=== PATIENT | female | born 1965 | race Caucasian/White ===

== ENCOUNTER 2019-04-26 06:58 | Day surgery (SDC) | payer MEDICARE, MEDICAID, SELFPAY ==
[2019-04-25 13:18] VITALS: BMI 43.7
--- NOTE | 2019-04-26 07:19 | ANES.PREANE2 ---
Pre-Anesthetic Assessment Pre-Anesthetic Assessment: Height/Weight: Height 1.57 m Weight 108.409 kg Preop Diagnosis: polyps Proposed Procedure: Operation Date: 04/26/19 08:30 Proposed Procedures p Colonoscopy(Not Applicable) - Karlos Sanchez MD Familial anesthetic complications: None Was Beta Kobe taken within 24 hours: N/A Last intake: 1130 pm last night, took gabapentin, flexeril, esomeprazole this morning Social: Social History: Tobacco and No alcohol Packs per day: 1 ppd Exam: Pre-Anes Outpt Exam: alert, oriented x 3, clear to auscultation bilaterally and regular rate & rhythm Airway: Cervical ROM: WNL (cervical fusion - somewhat limited extension (mostly due to pain)) MP: 2 Dentition: False Pulmonary: Pulmonary: COPD (3 L NC continuous (91-92%)) CV/HEM: CV/HEM: None reported : : None reported Hepatic: Hepatic: None reported GI: Comments: excess acid in stomach so she takes esomeprazole - no active symptoms righ tnow Metabolic: Metabolic: DM and Morbid obesity Musc/skel: Musc/skel: Lower Back Pain Comments: cervical spine fused Neuropsych: Neuropsych: None reported Anesthetic Plan: ASA status: 3 Anesthesia: MAC Other: Will have patient on POM mask Risk of > 500 ml blood loss (7ml/kg in children): No PFSH Anesthesia PFSH: Social History Smoking and tobacco status: current every day smoker Alcohol intake: never Household members: spouse Marital status: Current occupational status: disabled History of recent travel: No Data Anesthesia Cardiac Studies: No Data to Display
[2019-04-26 07:43] VITALS: BP 127/95; PULSE 55; RESP 20; TEMP 36.4; O2SAT 96
[2019-04-26] MEDS: sodium chloride 0.9% 1,000 ML 30 ML (07:58)
[2019-04-26 08:03] LABS: Glucose Point of Care 124 mg/dL (70-110)
[2019-04-26 09:52] VITALS: BP 97/61; PULSE 93; RESP 16; TEMP 36.8; O2SAT 92
--- NOTE | 2019-04-26 09:57 | ANE.PACU2 ---
 Inpatient post-anesthesia follow up: Airway intact: Yes Vital signs: Temperature 98.3 F Pulse Rate 93 Respiratory Rate 16 Blood Pressure 97/61 Pulse Oximetry 92 Oxygen Delivery Me thod Nasal Cannula Oxygen Flow Rate 3 Fraction of Inspir ed Oxygen Hydration adequate: Yes Nausea and vomiting: No Pain level: 1 Mental status: Baseline
[2019-04-26 10:09] VITALS: BP 101/80; PULSE 95; RESP 18; O2SAT 94
--- NOTE | 2019-05-02 08:00 | W.PM.OPSUD ---
Surgery/Procedure H&P Update DATE OF PROCEDURE: 04/26/2019 DATE H&P PERFORMED: 03/29/19 H&P UPDATE INFORMATION: I have reviewed H&P completed within last 30 days, I have examined patient prior to procedure and No changes to prior documentation PREOP DIAGNOSIS: Colon polyps PLANNED PROCEDURE: Operation Date: 04/26/19 08:30 Proposed Procedures p Colonoscopy(Not Applicable) - Karlos Sanchez MD
== END 2019-04-26 10:34 | disposition home or self-care (01) ==
PROVIDERS: Family Provider Registered Nurse; PCP Registered Nurse; Visit Provider Surgery
PROC: 0DJD8ZZ Inspection of Lower Intestinal Tract, Via Natural or Artificial Opening Endoscopic (ICD-10-PCS; CPT 45378; principal; 2019-04-26 08:30)
DX: Z12.11 Encounter for screening for malignant neoplasm of colon (principal); D12.5 Benign neoplasm of sigmoid colon; K64.8 Other hemorrhoids; Z86.010 Personal history of colon polyps; J44.9 Chronic obstructive pulmonary disease, unspecified; F32.9 Major depressive disorder, single episode, unspecified; E11.40 Type 2 diabetes mellitus with diabetic neuropathy, unspecified; Z83.3 Family history of diabetes mellitus; Z82.49 Family history of ischemic heart disease and other diseases of the circulatory system; F17.210 Nicotine dependence, cigarettes, uncomplicated; Z99.81 Dependence on supplemental oxygen; E11.9 Type 2 diabetes mellitus without complications; E66.01 Morbid (severe) obesity due to excess calories; Z68.41 Body mass index [BMI] 40.0-44.9, adult
CPT/HCPCS: 12345; 36416; 45380; 82962; 88305; J2704; J7030

== ENCOUNTER → 2019-05-03 10:58 | Outpatient (BNVA) | payer MEDICARE, MEDICAID, SELFPAY | PROVIDERS: Family Provider Registered Nurse; PCP Registered Nurse; Visit Provider Nurse Practitioner | DX: M54.9 Dorsalgia, unspecified (principal); M54.2 Cervicalgia; G62.9 Polyneuropathy, unspecified; F17.210 Nicotine dependence, cigarettes, uncomplicated; Z79.891 Long term (current) use of opiate analgesic | CPT/HCPCS: 99214 ==

== ENCOUNTER → 2019-08-23 15:55 | Outpatient (BNVA) | payer MEDICARE, MEDICAID, SELFPAY | PROVIDERS: Family Provider Registered Nurse; PCP Registered Nurse; Visit Provider Registered Nurse | DX: E11.9 Type 2 diabetes mellitus without complications (principal) | CPT/HCPCS: 83036 ==

== ENCOUNTER → 2019-08-30 14:07 | Outpatient (BNVA) | payer MEDICARE, MEDICAID, SELFPAY | PROVIDERS: Family Provider Registered Nurse; PCP Registered Nurse; Visit Provider Anesthesiology | DX: G89.29 Other chronic pain (principal); M54.41 Lumbago with sciatica, right side; M54.42 Lumbago with sciatica, left side; M54.2 Cervicalgia; G62.9 Polyneuropathy, unspecified; F17.210 Nicotine dependence, cigarettes, uncomplicated; Z79.891 Long term (current) use of opiate analgesic; Z71.6 Tobacco abuse counseling | CPT/HCPCS: 99214 ==

== ENCOUNTER 2019-09-23 06:50 | Outpatient (CLI) | payer MEDICARE, MEDICAID, SELFPAY ==
[2019-09-23 07:13] VITALS: BMI 43.1
--- NOTE | 2019-09-23 07:27 | ECG_ITS ---
[facility] Test Date: 2019-09-23 Pat Name: Philomena Rodriguez Department: Room: Gender: Female [employer]: : 1965 Requested By: Elena Daniel Order Number: [id number] Trung MD: Elena Daniel M.D. Interpretive Statements NAME OF STUDY: LEXISCAN SESTAMIBI STRESS TEST INDICATION: Chest Pain PROCEDURE: At the baseline, the blood pressure was 102/86 mmHg, oxygen saturation 93% with a heart rate of 100 bpm. The electrocardiogram showed normal sinus rhythm, right axis deviation and right bundle branch block. Nonspecific T wave inversion in lead III, V4 to V6. The Lexiscan was infused over a period of 20 seconds. A total of 0.4 milligrams of Lexiscan was infused. The stress phase was continued for a total of 5 minutes. Heart rate at the end of the stress phase was 118 bpm, oxygen saturation 94% with a blood pressure 104/65 mmHg. The EKG at the peak infusion revealed sinus tachycardia with no significant ST-T wave changes from baseline. Study was terminated due to completion of protocol. Sestamibi was injected 20 seconds after the Lexiscan infusion. Blood pressure at the end of the recovery phase was 90/60 mmHg, oxygen saturation 91% with a heart rate of 110 beats per minute. CONCLUSION: 1. Nondiagnostic EKG with Lexiscan infusion given baseline EKG changes. 2. No LexiScan induced chest pain or cardiac arrhythmia. 3. Normal blood pressure and heart rate response. 4. Sestamibi/sestamibi perfusion scan pending; see separate report. Electronically Signed On 09-23-2019 12:53:39 CDT by Elena Daniel M.D. [email or web address] [id number]
--- NOTE | 2019-09-23 07:27 | NMCV_ITS ---
NM tamara perf SPECT r/s* [id number] Philomena Rodriguez Age: 54 Gender: F : 1965 Exam Date: 09/23/2019 08:16 Ordering Phys: Elena Daniel MD ([email or web address]) Technologist: EFREN Patino Exam Location: [facility] Indications: CHEST PAIN STRESS TEST Please [facility] for [facility] IMAGE PROTOCOL Rest/Stress 1 Lexiscan Day Radiopharmaceutical Dose (mCi) Administration Site Administered by Rest: Tc-99m 10.9 IV EFREN Painting Sestamibi Stress:Tc-99m 32.9 IV EFREN Painting Sestamibi Rest: 23-Sep-2019 60 Discovery 630 Stress: 23-Sep-2019 30 Discovery 630 0.4mg Lexiscan. Supine position only as patient was unable to lay prone. SPECT RESULTS Technical Quality: Excellent Raw Data Analysis: Normal, Breast attenuation Image Corrections: No attenuation or motion correction applied Summed Stress Score: 0 Summed Rest Score: 0 Summed Difference Score: 0 PERFUSION FINDINGS Small size perfusion abnormality of mild severity of anterior wall on rest images with improved tracer uptake on stress images. This is suggestive of breast attenuation artifact. FUNCTIONAL RESULTS (calculated via Gated SPECT) Stress Image LV EF (%): 82 Stress EDV (mL):72 TID: 0.95 Stress ESV (mL):13 FUNCTIONAL FINDINGS: The left ventricle is normal in size. Transient Ischemia Dilatation of 0.95. There is hyperdynamic left ventricular systolic function. The left ventricular ejection fraction is hyperdynamic with a value of 82%. This is likely overestimated because of small left ventricular cavity size. There is hyperdynamic left ventricular wall thickening. Normal end diastolic and end systolic volumes. IMPRESSIONS 1. Myocardial perfusion imaging is normal. Breast attenuation artifact noted in anterior wall. 2. Overall left ventricular systolic function is hyperdynamic without regional wall motion abnormalities. 3. The left ventricular ejection fraction is hyperdynamic with a value of 82%. 4. No coronary ischemia based on this study. Elena Daniel MD (Electronically Signed) Final Date: 23 September 2019 13:10 S
--- NOTE | 2019-09-23 09:00 | SUR.PREOP ---
Patient reports no pain or discomfort prior to the start of the procedure.
[2019-09-23] MEDS: regadenoson 0.4 Mg/5 ml Syringe IVP (09:03)
[2019-09-23 09:26] VITALS: BP 90/61; PULSE 107
== END 2019-09-23 06:51 | disposition home or self-care (01) ==
LOC: RAD 06:50 → CDL 06:52
PROVIDERS: PCP Registered Nurse; Visit Provider Internal Medicine Cardiovascular Disease
DX: R07.9 Chest pain, unspecified (principal)
CPT/HCPCS: 78452; 93017; A9500; J2785

== ENCOUNTER 2019-10-05 05:47 | Day surgery (SDC) | payer MEDICARE, MEDICAID, SELFPAY ==
[2019-10-04 12:16] VITALS: BMI 43.7
[2019-10-05] VITALS (8 sets, daily range): BP systolic 90–131; BP diastolic 56–77; PULSE 63–96; RESP 18–22; TEMP 35.8–36.6; O2SAT 90–97
[2019-10-05 06:27] LABS: Glucose Point of Care 108 mg/dL (70-110)
--- NOTE | 2019-10-05 06:36 | ANES.PREANE2 ---
Pre-Anesthetic Assessment Pre-Anesthetic Assessment: Height/Weight: Height 1.57 m Weight 108.409 kg Temp Pulse Resp BP Pulse Ox 97.9 F 96 20 H 131/72 95 10/05/19 06:02 10/05/19 06:02 10/05/19 06:02 10/05/19 06:02 10/05/19 06:02 Preop Diagnosis: Colon polyps Proposed Procedure: Operation Date: 10/05/19 07:00 Proposed Procedures p Ebus(Not Applicable) - Biplab MD Tashi Familial anesthetic complications: None Was Beta Kobe taken within 24 hours: N/A Last intake: Intake Last Liquid Date 10/04/19 Last Liquid Time 23:20 Last Solid Date 10/04/19 Last Solid Time 21:30 Social: Social History: Tobacco and No alcohol Exam: Pre-Anes Outpt Exam: alert, oriented x 3, clear to auscultation bilaterally and regular rate & rhythm Airway: Cervical ROM: WNL (Fusion, ok motion while asleep, mostly stiff) MP: 1 Dentition: False Pulmonary: Pulmonary: COPD (3 L NC 24/7, sometimes increasing to 4 L/min during periods of exertion) and Sleep apnea (cpap) CV/HEM: CV/HEM: Angina (Stable) and Palp Comments: RBBB GI: GI: GERD and PUD Metabolic: Metabolic: DM, Morbid obesity and Thyroid Musc/skel: Musc/skel: Lower Back Pain Neuropsych: Neuropsych: None reported Anesthetic Plan: ASA status: 3 Anesthesia: General Risk of > 500 ml blood loss (7ml/kg in children): No PFSH Anesthesia PFSH: Medical History Chronic neck pain COPD (chronic obstructive pulmonary disease) DDD (degenerative disc disease) Depression Diabetes Encounter for long-term opiate analgesic use GERD (gastroesophageal reflux disease) History of colon polyps Low back pain of over 3 months duration Neuropathy Opioid contract exists Smoker Surgical History H/O colonoscopy 04/26/2019: Sigmoid colon polyp H/O esophagogastroduodenoscopy yrs dash History of section History of cholecystectomy (2010) History of fusion of cervical spine (11/15/12) C5-C6 ACDFF [address] Boykin S/P hemilaminotomy (06/15/14) Right L2-L3 hemilaminotomy/foraminotomy/discectomy Dr. Boykin Family History Mother Cancer Cervical Other Hypertension Denies family history of Anesthesia complication Bleeding disorder Social History Smoking and tobacco status: current every day smoker cigarettes Packs smoked per day: 1 Years cigarettes smoked: 30 Quit status (tobacco): considering quitting Alcohol intake: never Lives independently: Yes Household members: spouse Marital status: Current occupational status: disabled History of recent travel: No Current gender identity: Female Data Anesthesia Other Labs: Laboratory Results - last 48 hr 10/05/19 06:23 POC Glucose 108 Cardiac Studies: No Data to Display
[2019-10-05] MEDS: sodium chloride 0.9% 1,000 ML 30 ML IV (06:49)
--- NOTE | 2019-10-05 06:49 | W.PM.OPSUD ---
Surgery/Procedure H&P Update DATE OF PROCEDURE: October 05, 2019 DATE H&P PERFORMED: 09/13/19 H&P UPDATE INFORMATION: I have reviewed H&P completed within last 30 days, I have examined patient prior to procedure and No changes to prior documentation PREOP DIAGNOSIS: Colon polyps PRIMARY INDICATION FOR PROCEDURE: Right hilar lymphadenopathy PLANNED PROCEDURE: Bronchoscopy inspection of the airway, endobronchial sound guided transbronchial needle aspiration of lymph nodes Operation Date: 10/05/19 07:00 Proposed Procedures p Ebus(Not Applicable) - Biplab MD Tashi
[2019-10-05] MEDS: lidocaine 1% INJ 20 mL SUBCUT (07:13)
--- NOTE | 2019-10-05 07:52 | PM.OP ---
Operative Report Date of procedure: October 05, 2019 Pre-op Diagnosis: Mediastinal lymphadenopathy Post-op diagnosis: same Brief History: This is a 54-year-old lady with PET positive medicine lymphadenopathy coming in for bronchoscopic evaluation for malignancy Procedure: Name of the procedure: Bronchoscopy with inspection of the airway, bronchoalveolar lavage, endobronchial ultrasound-guided transbronchial needle aspiration of lymph nodes and control of bleeding. Indication: Mediastinal hilar lymphadenopathy Anesthesia: General anesthesia. Local anesthesia: The tammi in the right and left mainstem bronchi were anesthetized with 1% lidocaine, 3 mL. Description of the procedure: The procedure was explained to the patient and the consent was obtained. The patient was brought to the OR. The patient underwent endotracheal intubation for general anesthesia. Following induction of general anesthesia, the bronchoscope was advanced through the ET tube. The lower trachea appeared to be mildly erythematous, no endotracheal lesion was seen. The tammi was sharp. The tammi, the right and left mainstem bronchi are anesthetized with 1% lidocaine. In a systematic manner bilateral bronchial tree was then examined. The bronchoscope was advanced into the left mainstem bronchus. The left upper lobe, lingula and left lower lobe bronchi were examined up to the third subsegmental level and no abnormalities were identified. There is no endobronchial lesion, active bleeding or mucous plug. The bronchoscope was then introduced into the right mainstem bronchus. The right upper lobe, right middle lobe and right lower lobe bronchi were examined up to the third subsegmental level and no abnormalities were identified. There was airway inflammation and mucus throughout the airways. Bronchoalveolar lavage was performed from the lateral segment of the right middle lobe. 60 mL of saline was instilled, fluid return was 20 mL. The fluid was cloudy. The endobronchial ultrasound was introduced through the ET tube. Mediastinal and hilar lymphadenopathy was identified with the ultrasound. The lymph nodes showed no distinct cortex and Medela. Transbronchial needle aspiration was performed from 4R, 7, 10 R lymph nodes. Samples: 1. Bronchoalveolar lavage specimen was sent for Gram stain and culture, fungal stain and culture, AFB stain and culture. 2. The transbronchial needle aspiration of the aforementioned lymph node groups were sent for cytology. Complications: There was no immediate complications. The patient was extubated and brought to the PACU in stable condition.
== END 2019-10-05 09:22 | disposition home or self-care (01) ==
PROVIDERS: PCP Registered Nurse; Visit Provider Internal Medicine Critical Care Medicine
PROC: BB4BZZZ Ultrasonography of Pleura (ICD-10-PCS; CPT 31624; principal; 2019-10-05 07:00)
DX: R59.0 Localized enlarged lymph nodes (principal); J44.9 Chronic obstructive pulmonary disease, unspecified; Z99.89 Dependence on other enabling machines and devices; E66.01 Morbid (severe) obesity due to excess calories; E11.40 Type 2 diabetes mellitus with diabetic neuropathy, unspecified; F17.210 Nicotine dependence, cigarettes, uncomplicated; Z99.81 Dependence on supplemental oxygen; G47.33 Obstructive sleep apnea (adult) (pediatric); Z79.84 Long term (current) use of oral hypoglycemic drugs; Z68.41 Body mass index [BMI] 40.0-44.9, adult
CPT/HCPCS: 31624; 31652; 12345; 31625; 31627; 36416; 82962; 87070; 87102; 87107; 87205; 87206; 88112; 88173; 88305; J0330; J2250; J2370; J2704; J2710; J3010; J3490; J7030

== ENCOUNTER → 2019-10-21 11:40 | Outpatient (BNVA) | payer MEDICARE, MEDICAID, SELFPAY | PROVIDERS: PCP Registered Nurse; Visit Provider Internal Medicine | DX: Z01.812 Encounter for preprocedural laboratory examination (principal) | CPT/HCPCS: 87635 ==

== ENCOUNTER 2019-10-24 09:22 | Outpatient (CLI) | payer MEDICARE, MEDICAID, SELFPAY ==
--- NOTE | 2019-10-24 10:01 | USCV_ITS ---
Philomena Rodriguez Age: 54 Gender: F : 1965 Exam Date: 10/24/2019 10:14 Ordering Phys: Lien Akins MD Technologist: Dagoberto Hong Exam Location: [facility] [place] Indication: IRREG HEART BEAT BP: 124 / 75 HR: 85 Rhythm: Sinus Technical Quality: Poor MEASUREMENTS (Male / Female) Normal Values 2D ECHO LV Diastolic Diameter PLAX 3.0 cm 4.2 - 5.9 / 3.9 - 5.3 cm LV Systolic Diameter PLAX 2.3 cm IVS Diastolic Thickness 1.1 cm 0.6 - 1.0 / 0.6 - 0.9 cm IVS Systolic Thickness 1.2 cm LVPW Diastolic Thickness 0.9 cm 0.6 - 1.0 / 0.6 - 0.9 cm LVPW Systolic Thickness 1.4 cm LVOT Diameter 2.3 cm LV Ejection Fraction 2D Teich 48.4 % LV Ejection Fraction MOD 2C 76.6 % LV Ejection Fraction 2C AL 77.3 % LA Diameter 4.4 cm LA Width 2.3 cm LA Height 4.2 cm RA Width 2.9 cm RA Height 4.1 cm Aorta at Sinotubular Diameter 0.9 cm M-MODE LV Diastolic Diameter MM 5.1 cm 4.2 - 5.9 / 3.9 - 5.3 cm LV Systolic Diameter MM 3.5 cm LV Ejection Fraction MM Teich 59.1 % IVS Diastolic Thickness MM 1.0 cm 0.6 - 1.0 / 0.6 - 0.9 cm IVS Systolic Thickness MM 1.6 cm LVPW Diastolic Thickness MM 1.1 cm 0.6 - 1.0 / 0.6 - 0.9 cm LVPW Systolic Thickness MM 1.8 cm RV Diastolic Diameter MM 1.5 cm Aortic Annulus Diameter 3.8 cm LA Ao Ratio MM 1.2 MV E Point Septal Separation 0.8 cm DOPPLER AV Peak Velocity 124.0 cm/s LVOT Peak Velocity 93.0 cm/s AV Area Cont Eq vti 3.6 cm squared AV Area Cont Eq pk 3.2 cm squared MV Area PHT 5.0 cm squared Mitral E to A Ratio 1.1 MV E' Velocity 9.0 cm/s Mitral E to MV E' Ratio 10.9 Mitral E to LV E' Lateral Ratio 10.9 Mitral E to LV E' Septal Ratio 10.9 TR Peak Velocity 94.0 cm/s TR Peak Gradient 3.5 mmHg PV Peak Velocity 74.0 cm/s FINDINGS Left Ventricle Normal left ventricular cavity size. Normal left ventricular systolic function. No regional wall motion abnormalities. Left ventricular ejection fraction is estimated at 60 %. Grade I/IV diastolic dysfunction (abnormal relaxation filling pattern), normal to mildly elevated filling pressures. Right Ventricle The right ventricle is normal in size and function. Right Atrium The right atrium is normal in size. Left Atrium The left atrium is normal in size. Mitral Valve Structurally normal mitral valve without significant stenosis or prolapse. There is no mitral regurgitation. Aortic Valve Aortic valve not well visualized. Probably normal Tricuspid Valve Structurally normal tricuspid valve without significant stenosis or regurgitation. Pulmonary artery systolic pressure is normal. Pulmonic Valve Structurally normal pulmonic valve without significant stenosis. There is no pulmonic regurgitation. Pericardium Normal pericardium without effusion. Aorta Normal ascending aorta dimension. CONCLUSIONS 1-Normal left ventricular cavity size. Normal left ventricular systolic function. No regional wall motion abnormalities. Left ventricular ejection fraction is estimated at 60 %. Grade I/IV diastolic dysfunction (abnormal relaxation filling pattern), normal to mildly elevated filling pressures. 2-Aortic valve not well visualized. Probably normal. 3-There is no pericardial effusion. 4-No significant valve abnormalities. 5-Right atrial pressure is around 5 mm of mercury. 6-There are no prior echocardiogram studies to compare. Leroy Moyer MD (Electronically Signed) Final Date: 24 October 2019 20:18 S
[2019-10-24 10:13] VITALS: O2SAT 92
--- NOTE | 2019-10-24 10:21 | PFTS_ITS ---
Date of Study:10/24/19 Date of Dictation: MECHANICS: Forced vital capacity (FVC) is reduced. Forced expiratory volume in one second (FEV1) is reduced. FEV1/FVC is normal. FLOW VOLUME LOOP: Narrowed with mild scooping at lower lung volumes. LUNG VOLUMES: Total lung capacity (TLC) is increased. Residual volume (RV) is increased. DIFFUSING CAPACITY FOR CARBON MONOXIDE: Moderately reduced. INTERPRETATION: The pulmonary function tests are consistent with combined obstruction restriction. Spirometry is consistent with mild restriction however there is increased total lung capacity and residual volume likely secondary to small airways disease. Lung volumes are consistent with air trapping and hyperinflation. Gas exchange (DLCO) is moderately reduced. MTDD
== END 2019-10-24 09:23 | disposition home or self-care (01) ==
LOC: RT 09:24
PROVIDERS: PCP Registered Nurse; Visit Provider Internal Medicine Critical Care Medicine
DX: J96.11 Chronic respiratory failure with hypoxia (principal); I49.8 Other specified cardiac arrhythmias
CPT/HCPCS: 93306; 94010; 94726; 94729; 94762

== ENCOUNTER 2019-10-24 11:00 | Outpatient (CLI) | payer MEDICARE, MEDICAID, SELFPAY | END 2019-10-24 11:01 | disposition home or self-care (01) | LOC: SLEEP 10-25 13:56 | PROVIDERS: PCP Registered Nurse; Visit Provider Internal Medicine Critical Care Medicine | DX: J96.11 Chronic respiratory failure with hypoxia (principal) | CPT/HCPCS: 94762 ==

== ENCOUNTER → 2019-10-27 10:02 | Outpatient (BNVA) | payer MEDICARE, MEDICAID, SELFPAY | PROVIDERS: Family Provider Registered Nurse; PCP Registered Nurse; Visit Provider Anesthesiology | DX: G89.29 Other chronic pain (principal); M54.42 Lumbago with sciatica, left side; M54.41 Lumbago with sciatica, right side; M54.2 Cervicalgia; G62.9 Polyneuropathy, unspecified; F17.210 Nicotine dependence, cigarettes, uncomplicated; Z79.891 Long term (current) use of opiate analgesic; Z71.6 Tobacco abuse counseling | CPT/HCPCS: 99214 ==

== ENCOUNTER → 2019-12-28 12:59 | Outpatient (BNVA) | payer MEDICARE, MEDICAID, SELFPAY | PROVIDERS: Family Provider Registered Nurse; PCP Registered Nurse; Visit Provider Anesthesiology | DX: G89.29 Other chronic pain (principal); M54.5 Low back pain; M54.2 Cervicalgia; G62.9 Polyneuropathy, unspecified; F17.210 Nicotine dependence, cigarettes, uncomplicated; Z79.891 Long term (current) use of opiate analgesic | CPT/HCPCS: 99214 ==

== ENCOUNTER → 2020-02-14 13:58 | Outpatient (BNVA) | payer MEDICARE, MEDICAID, SELFPAY | PROVIDERS: Family Provider Registered Nurse; PCP Registered Nurse; Visit Provider Nurse Practitioner | DX: G89.29 Other chronic pain (principal); M54.5 Low back pain; M54.2 Cervicalgia; G62.9 Polyneuropathy, unspecified; F17.210 Nicotine dependence, cigarettes, uncomplicated; Z79.891 Long term (current) use of opiate analgesic | CPT/HCPCS: 99213 ==

== ENCOUNTER → 2020-03-14 15:19 | Outpatient (BNVA) | payer MEDICARE, MEDICAID, SELFPAY | PROVIDERS: Family Provider Registered Nurse; PCP Registered Nurse; Visit Provider Registered Nurse | DX: J44.1 Chronic obstructive pulmonary disease with (acute) exacerbation (principal); Z20.828 Contact with and (suspected) exposure to other viral communicable diseases | CPT/HCPCS: 87635 ==

== ENCOUNTER → 2020-04-10 11:37 | Outpatient (BNVA) | payer MEDICARE, MEDICAID, SELFPAY | PROVIDERS: Family Provider Registered Nurse; PCP Registered Nurse; Visit Provider Nurse Practitioner | DX: G89.29 Other chronic pain (principal); G62.9 Polyneuropathy, unspecified; M54.5 Low back pain; M54.2 Cervicalgia; F17.210 Nicotine dependence, cigarettes, uncomplicated; Z79.891 Long term (current) use of opiate analgesic | CPT/HCPCS: 99213; 99214 ==

== ENCOUNTER → 2020-04-27 09:29 | Outpatient (BNVA) | payer MEDICARE, MEDICAID, SELFPAY | PROVIDERS: Family Provider Registered Nurse; PCP Registered Nurse; Visit Provider Registered Nurse | DX: E11.9 Type 2 diabetes mellitus without complications (principal); F41.9 Anxiety disorder, unspecified; F32.9 Major depressive disorder, single episode, unspecified; J43.2 Centrilobular emphysema | CPT/HCPCS: 80053; 80061; 83036; 85025 ==

== ENCOUNTER → 2020-06-07 14:01 | Outpatient (BNVA) | payer MEDICARE, MEDICAID, SELFPAY | PROVIDERS: Family Provider Registered Nurse; PCP Registered Nurse; Visit Provider Nurse Practitioner | DX: G89.29 Other chronic pain (principal); M54.5 Low back pain; M54.2 Cervicalgia; G62.9 Polyneuropathy, unspecified; F17.210 Nicotine dependence, cigarettes, uncomplicated; Z79.891 Long term (current) use of opiate analgesic; Z71.6 Tobacco abuse counseling | CPT/HCPCS: 99213; 99214 ==

== ENCOUNTER → 2020-08-15 13:07 | Outpatient (BNVA) | payer MEDICARE, MEDICAID, SELFPAY | PROVIDERS: Family Provider Registered Nurse; PCP Registered Nurse; Visit Provider Anesthesiology | DX: G89.29 Other chronic pain (principal); M54.2 Cervicalgia; M54.9 Dorsalgia, unspecified; G62.9 Polyneuropathy, unspecified; F17.210 Nicotine dependence, cigarettes, uncomplicated; Z79.891 Long term (current) use of opiate analgesic | CPT/HCPCS: 99213 ==

== ENCOUNTER → 2020-10-12 13:36 | Outpatient (BNVA) | payer MEDICARE, MEDICAID, SELFPAY | PROVIDERS: Family Provider Registered Nurse; PCP Registered Nurse; Visit Provider Anesthesiology | DX: G89.29 Other chronic pain (principal); M54.42 Lumbago with sciatica, left side; M54.2 Cervicalgia; G62.9 Polyneuropathy, unspecified; Z79.891 Long term (current) use of opiate analgesic; Z87.891 Personal history of nicotine dependence | CPT/HCPCS: 99214 ==

== ENCOUNTER → 2020-11-28 10:54 | Outpatient (BNVA) | payer MEDICARE, MEDICAID, SELFPAY | PROVIDERS: Family Provider Registered Nurse; PCP Registered Nurse; Visit Provider Registered Nurse | DX: E11.9 Type 2 diabetes mellitus without complications (principal); I10 Essential (primary) hypertension; E53.8 Deficiency of other specified B group vitamins | CPT/HCPCS: 80053; 82607; 83036; 85025 ==

== ENCOUNTER → 2020-12-18 13:47 | Outpatient (BNVA) | payer MEDICARE, MEDICAID, SELFPAY | PROVIDERS: Family Provider Registered Nurse; PCP Registered Nurse; Visit Provider Anesthesiology | DX: G89.29 Other chronic pain (principal); M54.42 Lumbago with sciatica, left side; M54.2 Cervicalgia; G62.9 Polyneuropathy, unspecified; Z79.891 Long term (current) use of opiate analgesic; Z87.891 Personal history of nicotine dependence | CPT/HCPCS: 99214 ==

== ENCOUNTER 2020-12-24 13:37 | Outpatient (CLI) | payer MEDICARE, MEDICAID, SELFPAY ==
--- NOTE | 2020-12-24 13:30 | CT_ITS ---
WS: [id number] LDCT LUNG CANCER SCREENING HISTORY: History of Nicotine Dependence TECHNIQUE: Axial imaging performed from the apices to 1 cm below the costophrenic angles. Coronal and sagittal reformats are submitted with axial MIP series. All CT scans at [facility] use at least one of these dose optimization techniques: automated exposure control; mA and/or kV adjustment per patient size (includes targeted exams where dose is matched to clinical indication); or iterativ e reconstruction. DLP: 53.4 mGy.cm DIvol: 1.58 mGy COMPARISON: 08/21/2019 Diagnostic quality: Mildly suboptimal due to body habitus. Lung Nodules: No discrete pulmonary nodules. There is a very small, 5 mm soft tissue nodule projectin g into the proximal LEFT mainstem bronchus, image 98 of series 3 and 54 of series 603. This was not p resent on prior studies. Lungs: Hyperinflation with chronic emphysema. Linear atelectasis at the lingula. Heart: Normal size heart. No effusion. Other findings: Thoracic spondylitic changes. CT/CT lung screening 50092 IMPRESSION: LUNG-RADS: 4A-Probably Suspicious FOLLOW UP: 3 Month LDCT OTHER FINDINGS (S MODIFIER): None. Follow-up in 3 months to evaluate the very small endobronchial lesion in the pr oximal LEFT mainstem bronchus.
== END 2020-12-24 13:38 | disposition home or self-care (01) ==
LOC: RAD 13:40
PROVIDERS: PCP Registered Nurse; Visit Provider Internal Medicine Critical Care Medicine
DX: Z87.891 Personal history of nicotine dependence (principal); Z12.2 Encounter for screening for malignant neoplasm of respiratory organs
CPT/HCPCS: 71271

== ENCOUNTER → 2020-12-26 11:06 | Outpatient (BNVA) | payer MEDICARE, MEDICAID, SELFPAY | PROVIDERS: PCP Registered Nurse; Visit Provider Internal Medicine Critical Care Medicine | DX: R91.8 Other nonspecific abnormal finding of lung field (principal); Z20.822 Contact with and (suspected) exposure to COVID-19 | CPT/HCPCS: 87635 ==

== ENCOUNTER 2021-01-01 07:20 | Day surgery (SDC) | payer MEDICARE, MEDICAID, SELFPAY ==
[2020-12-31 10:10] VITALS: BMI 46.6
[2021-01-01 07:44] VITALS: BP 103/73; PULSE 98; RESP 20; TEMP 36.4; O2SAT 93
[2021-01-01] MEDS: sodium chloride 0.9% 1,000 ML 30 ML IV (07:48)
--- NOTE | 2021-01-01 08:00 | W.PM.OPSUD ---
Surgery/Procedure H&P Update DATE OF PROCEDURE: January 01, 2021 DATE H&P PERFORMED: 12/13/20 H&P UPDATE INFORMATION: I have reviewed H&P completed within last 30 days, I have examined patient prior to procedure and No changes to prior documentation PREOP DIAGNOSIS: Endobronchial lesion PLANNED PROCEDURE: Bronchoscopy, inspection of the airway endobronchial biopsies, bronchoalveolar lavage and control of bleeding Operation Date: 01/01/21 08:20 Proposed Procedures p Bronchoscopy 53485 R91.8 [id number](Not Applicable) - [facility] MD Tashi
[2021-01-01 08:06] LABS: Glucose Point of Care 118 mg/dL (70-110)
--- NOTE | 2021-01-01 08:08 | ANES.PREANE2 ---
Pre-Anesthetic Assessment Pre-Anesthetic Assessment: Height/Weight: Height 1.57 m Weight 115.666 kg Temp Pulse Resp BP Pulse Ox 97.5 F L 98 20 H 103/73 93 01/01/21 07:44 01/01/21 07:44 01/01/21 07:44 01/01/21 07:44 01/01/21 07:44 Preop Diagnosis: Endobronchial lesion Proposed Procedure: Operation Date: 01/01/21 08:20 Proposed Procedures p Bronchoscopy 00399 R91.8 [id number](Not Applicable) - Lien Akins MD Last intake: Intake Last Liquid Date 12/31/20 Last Liquid Time 23:00 Last Solid Date 12/31/20 Last Solid Time 23:00 Social: Social History: Tobacco Exam: Pre-Anes Outpt Exam: alert, oriented x 3, clear to auscultation bilaterally and regular rate & rhythm Airway: Submandibular: WNL Cervical ROM: WNL MP: 2 Dentition: Full History/ROS: No significant history except as noted and No significant complaints Pulmonary: Pulmonary: COPD, Cough, KENNEDY, Orthopnea, Sleep apnea and SOB Comments: 3LNC cont CV/HEM: CV/HEM: HTN : : None reported Hepatic: Hepatic: None reported GI: GI: None reported Metabolic: Metabolic: DM Musc/skel: Musc/skel: None reported Neuropsych: Neuropsych: Anxiety Anesthetic Plan: ASA status: 4 Anesthesia: Anesthesia Evaluation and MAC Risk of > 500 ml blood loss (7ml/kg in children): No Meds/Allergies Current Medications: Current Medications Generic Name Dose Route Start Last Admin Trade Name Freq PRN Reason Stop Dose Admin Sodium Chloride 1,000 mls @ 30 ml s/hr 01/01/21 07:30 01/01/21 07:48 Sodium Chloride 0.9% IV 01/02/21 07:29 30 mls/hr .Q24H MARIA GUADALUPE Administration PFSH Anesthesia PFSH: Medical History (Updated 12/18/20 @ 15:13 by Braulio Strauss MD) Chronic midline back pain Chronic neck pain DDD (degenerative disc disease) Depression Diabetes Encounter for long-term opiate analgesic use GERD (gastroesophageal reflux disease) History of colon polyps Low back pain of over 3 months duration Neuropathy Opioid contract exists Surgical History H/O colonoscopy 04/26/2019: Sigmoid colon polyp H/O esophagogastroduodenoscopy yrs [facility] History of section History of cholecystectomy (2010) History of fusion of cervical spine (11/15/12) C5-C6 [address] Boykin S/P hemilaminotomy (06/15/14) Right L2-L3 hemilaminotomy/foraminotomy/discectomy Dr. Boykin Family History Mother Cancer Cervical Other Hypertension Denies family history of Anesthesia complication Bleeding disorder Social History (Updated 12/18/20 @ 15:01 by Nora Santiago LPN) Quit status (tobacco): has quit using tobacco Year quit tobacco: 2020 Former quit date comment: Hx of 1 PPD x 40 Years Second hand smoke exposure: Yes Smoking risk assessment/counseling performed?: No Alcohol intake: never Counseling given: No Counseling given: No Lives independently: Yes Household members: spouse Marital status: Current occupational status: disabled History of recent travel: No Current gender identity: Female Data Anesthesia Other Labs: Laboratory Results - last 48 hr 01/01/21 08:03 POC Glucose 118 H Cardiac Studies: No Data to Display
[2021-01-01] MEDS: lidocaine 1% INJ 20 mL XX (08:33)
[2021-01-01 08:42] VITALS: BP 120/73; PULSE 102; RESP 20; TEMP 36.3; O2SAT 92
--- NOTE | 2021-01-01 08:46 | PM.OP ---
Operative Report Date of procedure: January 01, 2021 Pre-op Diagnosis: Endobronchial lesion Post-op diagnosis: same Post-op Diagnosis: Endobronchial accumulation of mucus Brief History: This is a 55-year-old lady who was found to have left mainstem bronchus endobronchial lesion on low-dose CT scan for lung cancer screening. She is coming in for bronchoscopic evaluation. Procedure: Name of the procedure: Bronchoscopy with inspection of the airway, possible endobronchial biopsy, bronchoalveolar lavage, airway clearance and control of bleeding. Indication: Endobronchial lesion in the left mainstem bronchus on CT scan of the chest. Medication: MAC Description of the procedure: Consent was obtained for the bronchoscopy procedure and the patient was brought to the OR. Monitored anesthesia care was initiated by the anesthesia team. The bronchoscope was introduced through the mouth and advanced till vocal cords were visualized. The vocal cords anesthetized with 1% lidocaine, 3 mL. The bronchoscope was then introduced through the vocal cords under direct visualization. The upper trachea appeared to be mildly right Erwin. There was mucus stuck to the wall of the upper trachea. The trachea, the tammi and the right and left mainstem bronchi are anesthetized with 1% lidocaine. A total of 5 mL of lidocaine was used. In a systematic manner bilateral airways were then examined. The bronchoscope was introduced into the right mainstem bronchus. The right upper lobe, middle lobe and lower lobe bronchi are examined up to the third subsegmental level. No endobronchial lesions were identified but there was mucus throughout the right side. The bronchoscope was then introduced into the left mainstem bronchus. Mucus was noted to be stuck on the wall of the left mainstem bronchus. The left mainstem bronchus was carefully examined. After the mucus was suctioned out, no endobronchial lesion was identified. The left upper lobe, lingula and lower lobe bronchi were examined up to the third subsegmental level without any abnormalities. The airways were cleaned up. Complications: No immediate complication was noted.
[2021-01-01 08:50] VITALS: BP 134/96; PULSE 97; RESP 20; O2SAT 93
== END 2021-01-01 09:09 | disposition home or self-care (01) ==
PROVIDERS: PCP Registered Nurse; Visit Provider Internal Medicine Critical Care Medicine
PROC: 0BJ08ZZ Inspection of Tracheobronchial Tree, Via Natural or Artificial Opening Endoscopic (ICD-10-PCS; CPT 31622; principal; 2021-01-01 08:10)
DX: R91.1 Solitary pulmonary nodule (principal); I10 Essential (primary) hypertension; K21.9 Gastro-esophageal reflux disease without esophagitis; Z86.010 Personal history of colon polyps; E11.40 Type 2 diabetes mellitus with diabetic neuropathy, unspecified; Z87.891 Personal history of nicotine dependence; G47.33 Obstructive sleep apnea (adult) (pediatric); Z79.84 Long term (current) use of oral hypoglycemic drugs; Z79.891 Long term (current) use of opiate analgesic; J43.2 Centrilobular emphysema; J96.11 Chronic respiratory failure with hypoxia; E66.01 Morbid (severe) obesity due to excess calories; Z68.42 Body mass index [BMI] 45.0-49.9, adult
CPT/HCPCS: 31622; 31645; 36416; 82962; 96360; J7030

== ENCOUNTER → 2021-02-19 13:22 | Outpatient (BNVA) | payer MEDICARE, MEDICAID, SELFPAY | PROVIDERS: PCP Registered Nurse; Visit Provider Anesthesiology | DX: G89.29 Other chronic pain (principal); M54.2 Cervicalgia; M54.50 Low back pain, unspecified; G62.9 Polyneuropathy, unspecified; Z87.891 Personal history of nicotine dependence; Z79.891 Long term (current) use of opiate analgesic | CPT/HCPCS: 99214 ==

== ENCOUNTER → 2021-03-21 14:53 | Outpatient (BNVA) | payer MEDICARE, MEDICAID, SELFPAY | PROVIDERS: PCP Registered Nurse; Visit Provider Family Medicine | DX: M54.50 Low back pain, unspecified (principal); G89.29 Other chronic pain; M54.2 Cervicalgia; Z79.891 Long term (current) use of opiate analgesic; E11.9 Type 2 diabetes mellitus without complications; J30.1 Allergic rhinitis due to pollen | CPT/HCPCS: 83036 ==

== ENCOUNTER → 2021-09-12 15:08 | Outpatient (BNVA) | payer MEDICARE, MEDICAID, SELFPAY | PROVIDERS: PCP Registered Nurse; Visit Provider Registered Nurse | DX: E11.9 Type 2 diabetes mellitus without complications (principal); M54.2 Cervicalgia; G89.29 Other chronic pain | CPT/HCPCS: 80053; 83036 ==

== ENCOUNTER 2022-02-27 14:36 | Outpatient (CLI) | payer MEDICARE, MEDICAID, SELFPAY ==
--- NOTE | 2022-02-27 | CT_ITS ---
WS: [id number] CT LUMBAR SPINE TECHNIQUE: Noncontrast CT of the lumbar spine with coronal and sagittal reformatted images. CLINICAL INFORMATION: LUMBAR PAIN COMPARISON: CT 2017 DLP: 1988.[address] scans at [facility] use at least one of these dose optimization techniques: automated e xposure control; mA and/or kV adjustment per patient size (includes targeted exams where dose is matc hed to clinical indication); or iterative reconstruction. FINDINGS: Mild lumbar curve. No acute compression. Disc space narrowing throughout the lumbar spine with vacuum disc phenomenon. Disc space narrowing worse at L2-L3, L3-L4, L4-L5, and L5-S1. Degenerative endplate -type changes at L2-L3 with endplate sclerosis. Hypertrophic changes anterior lumbar spine. Disc spac e narrowing with vacuum disc phenomenon has progressed since 2017 Lung bases are well aerated. LEFT adrenal gland is normal. RIGHT adrenal adenoma measuring 1.9 CM. No rmal GE junction. Splenic granulomas. A few prominent lymph nodes at the sukh hepatis partially visu alized nonspecific but likely reactive. L1-L2: Mild RIGHT and no significant LEFT foraminal narrowing. Mild facet arthropathy. L2-L3: Disc space narrowing with endplate sclerosis. Vacuum disc phenomenon. Prior RIGHT hemilaminect solomon. RIGHT foraminal protrusion impinges the exiting RIGHT L2 nerve root with moderate RIGHT foramina l narrowing. LEFT foramen is patent. L3-L4: Mild disc bulging with osteophytic ridging. Narrowing of the LEFT subarticular recess. Moderat e facet arthropathy. LEFT foraminal protrusion with moderate LEFT foraminal narrowing. RIGHT foramen is patent. Moderate facet arthropathy. Mild central canal stenosis. L4-L5: Prior RIGHT hemilaminectomy. Shallow central disc protrusion with slight effacement of ventral thecal sac. Moderate facet arthropathy. Moderate LEFT and mild RIGHT foraminal narrowing. L5-S1: Mild disc bulging with osteophytic ridging. Mild to moderate RIGHT and no significant LEFT for aminal narrowing. Moderate facet arthropathy. Visualized pelvic bony structures: Normal. Paravertebral soft tissues: Normal. CT/CT lumbar spine wo con* [id number] IMPRESSION: 1. RIGHT foraminal protrusion L2-L3 impinges the exiting RIGHT L2 nerve root w ith moderate RIGHT foraminal narrowing. 2. LEFT foraminal protrusion L3-L4 impinges the exiting LEFT L3 nerve root wit h moderate LEFT foraminal narrowing. 3. Moderate LEFT L4-L5 foraminal narrowing due to LEFT eccentric disc osteophy te complex. 4. Mild/moderate RIGHT L5-S1 foraminal narrowing. 5. Mild central canal stenosis L3-L4. 6. Evidence of prior hemilaminectomies RIGHT L2-L3, RIGHT L4-L5.
--- NOTE | 2022-02-27 | CT_ITS ---
WS: [id number] CT CERVICAL MYELOGRAM TECHNIQUE: CT of the cervical spine coronal and sagittal reformatted images post intrathecal administ ration of contrast. CLINICAL INFORMATION: CERVICAL FUSION SYNDROME COMPARISON: MRI 2014 DLP: 361.[address] scans at [facility] use at least one of these dose optimization techniques: automated e xposure control; mA and/or kV adjustment per patient size (includes targeted exams where dose is matc hed to clinical indication); or iterative reconstruction. FINDINGS: Normal cervical lordosis. Moderate spondylitic changes. Prior postoperative changes ACDF C5-C6 with i ncomplete interbody bony fusion at this level. No significant bony bridging beyond the confines of th e graft.. Mild subsidence. Anterior fixation screws appear intact. No evidence of screw loosening. Ce rvical alignment appears unchanged since 2013. C2-C3: No significant disc bulging. Spinal canal and foramen are patent. C3-C4: Mild disc osteophyte complex with endplate ridging. Small central protrusion. Mild central can al stenosis. Mild bilateral bony foraminal narrowing. Mild facet arthropathy. C4-C5: Disc osteophyte complex with endplate ridging. Mild central canal stenosis. Mild bilateral bon y foraminal narrowing. Mild facet arthropathy. C5-C6: Anterior cervical fusion. Mild central canal stenosis due to osteophytic ridging. Moderate james ateral bony foraminal narrowing. Mild facet arthropathy. C6-C7: Disc osteophyte complex with endplate ridging. Moderate LEFT greater than RIGHT bony foraminal narrowing. Mild central canal stenosis. Mild facet arthropathy C7-T1: Mild bilateral bony foraminal narrowing. Spinal canal is patent. Visualized posterior fossa structures: Normal. CT/CT cervical spine w con [id number] IMPRESSION: 1. Straightening of the normal cervical lordosis. Moderate spondylitic changes . Anterior cervical fusion C5-C6. No evidence of screw loosening. Incomplete mitzi ny fusion at this level 2. Mild central canal stenosis C3 C4 C4 C5 C5 C6 and C6-C7. 3. Mild to moderate bony foraminal narrowing worse at bilateral C5-C6 and LEFT greater than RIGHT C6-C7.
[2022-02-27] MEDS: iohexol 350 mg/mL 500 mL Btl (per mL) IV (15:41)
== END 2022-02-27 14:37 | disposition home or self-care (01) ==
LOC: RAD 14:37
PROVIDERS: PCP Registered Nurse; Visit Provider General Practice
DX: Q76.1 Klippel-Feil syndrome (principal); M48.061 Spinal stenosis, lumbar region without neurogenic claudication; M25.78 Osteophyte, vertebrae; M51.26 Other intervertebral disc displacement, lumbar region; M48.02 Spinal stenosis, cervical region
CPT/HCPCS: 72126; 72131; Q9967

== ENCOUNTER → 2022-03-04 14:54 | Outpatient (BNVA) | payer MEDICARE, MEDICAID, SELFPAY | PROVIDERS: PCP Registered Nurse; Visit Provider Registered Nurse | DX: E11.9 Type 2 diabetes mellitus without complications (principal); E53.8 Deficiency of other specified B group vitamins; J44.1 Chronic obstructive pulmonary disease with (acute) exacerbation; J96.11 Chronic respiratory failure with hypoxia; Z79.891 Long term (current) use of opiate analgesic | CPT/HCPCS: 80053; 80061; 82306; 82607; 83036; 85025 ==

== ENCOUNTER → 2022-03-11 08:59 | Outpatient (BNVA) | payer MEDICARE, MEDICAID, SELFPAY | PROVIDERS: PCP Registered Nurse; Visit Provider Registered Nurse | DX: E11.9 Type 2 diabetes mellitus without complications (principal) | CPT/HCPCS: 83036 ==

== ENCOUNTER → 2022-06-11 09:13 | Outpatient (BNVA) | payer MEDICARE, MEDICAID, SELFPAY | PROVIDERS: PCP Registered Nurse; Visit Provider Registered Nurse | DX: E11.9 Type 2 diabetes mellitus without complications (principal) | CPT/HCPCS: 83036 ==

== ENCOUNTER → 2022-10-29 09:33 | Outpatient (BNVA) | payer MEDICARE, MEDICAID, SELFPAY | PROVIDERS: PCP Registered Nurse; Visit Provider Registered Nurse | DX: E11.9 Type 2 diabetes mellitus without complications (principal); E55.9 Vitamin D deficiency, unspecified; I10 Essential (primary) hypertension; F41.9 Anxiety disorder, unspecified; F32.9 Major depressive disorder, single episode, unspecified; J96.11 Chronic respiratory failure with hypoxia; H92.11 Otorrhea, right ear; L01.00 Impetigo, unspecified; Z79.899 Other long term (current) drug therapy | CPT/HCPCS: 80053; 81003; 82043; 82306; 83036; 85025; 87077; 87086; 87184 ==

== ENCOUNTER → 2023-06-02 10:43 | Outpatient (BNVA) | payer MEDICARE, MEDICAID, SELFPAY | PROVIDERS: PCP Registered Nurse; Visit Provider Registered Nurse | DX: E11.9 Type 2 diabetes mellitus without complications (principal) | CPT/HCPCS: 80053; 83036; 85025 ==

== ENCOUNTER → 2023-11-06 09:07 | Outpatient (BNVA) | payer MEDICARE, MEDICAID, SELFPAY | PROVIDERS: PCP Registered Nurse; Visit Provider Registered Nurse | DX: E11.9 Type 2 diabetes mellitus without complications (principal) | CPT/HCPCS: 80053; 82607; 83036 ==

== ENCOUNTER → 2024-05-09 11:57 | Outpatient (BNVA) | payer MEDICARE, MEDICAID, SELFPAY | PROVIDERS: PCP Registered Nurse; Visit Provider Registered Nurse | DX: E11.9 Type 2 diabetes mellitus without complications (principal) | CPT/HCPCS: 80053; 82607; 83036 ==

== ENCOUNTER 2024-05-24 11:33 | Outpatient (CLI) | payer MEDICARE, MEDICAID, SELFPAY ==
--- NOTE | 2024-05-24 11:37 | CTR_ITS ---
PROCEDURE INFORMATION: Exam: CT Chest Without Contrast; Diagnostic Exam date and time: 05/24/2024 12:05 PM Age: 59 years old Clinical indication: Condition or disease; Lung condition and disease; Emphysema; Centrilobular; Additional info: Centrilobular emphysema TECHNIQUE: Imaging protocol: Diagnostic computed tomography of the chest without contrast. Radiation optimization: All CT scans at this facility use at least one of these dose optimization techniques: automated exposure control; mA and/or kV adjustment per patient size (includes targeted exams where dose is matched to clinical indication); or iterative reconstruction. COMPARISON: CT lung screening [id number] 12/24/2020 2:01 PM RADIATION DOSE METRICS: Total DLP (mGy-cm): 680.31 FINDINGS: Lungs: 5 mm solid noncalcified nodule posterior right upper lung image 18 axial series 4 has increased from 3 mm. No other new pulmonary nodules. Unchanged calcified granulomas. Otherwise, unremarkable. Unchanged bilateral bullous emphysema. Increased atelectasis and/or pneumonitis in both mid and lower lungs superimposed upon scarring. Pleural spaces: Unremarkable. No pneumothorax. No pleural effusion. Heart: Unremarkable. No cardiomegaly. No pericardial effusion. Coronary arteries: Unchanged small amount of coronary artery calcification. Lymph nodes: Unchanged mild multifocal mediastinal lymphadenopathy. Unchanged sukh hepatis lymphadenopathy Probably reactive. No other lymphadenopathy. Vasculature: Unremarkable. No aortic aneurysm. Bones/joints: Unchanged spondylosis. Stable surgical changes lower cervical spine. Otherwise, unremarkable. Soft tissues: Unremarkable visualized body wall. Otherwise, unremarkable soft tissues. Other findings: Unremarkable visualized upper abdominal structures. CT/CT [facility] [id number] IMPRESSION: 1. 5 mm solid noncalcified nodule posterior right upper lung image 18 axial series 4 has increased from 3 mm. For patients at low risk (minimal or absent history of smoking and of other known risk factors), recommend CT Chest at 6-12 months, then consider CT Chest at 18-24 months. For patients at high risk (history of smoking or of other known risk factors), recommend CT Chest at 6-12 months, then CT Chest at 18-24 months. (Reference: Graciela) 2. Unchanged mild multifocal mediastinal lymphadenopathy. Unchanged sukh hepatis lymphadenopathy Probably reactive. 3. Unchanged bilateral bullous emphysema. 4. Increased atelectasis and/or pneumonitis in both mid and lower lungs superimposed upon scarring. 5. No other acute findings. 6. Additional details as above. COMMENTS: The presence of pulmonary emphysema on CT is an independent risk factor for lung cancer. In the absence of a history or active diagnosis of lung cancer, it is recommended that this patient with emphysema be evaluated for enrollment in a low dose CT lung cancer screening program. REFERENCES: Graciela Valera, et al. Guidelines for Management of Incidental Pulmonary Nodules Detected on CT Images: From the Fleischner Society 2017. Radiology. 2017;284(1):228-243.
== END 2024-05-24 11:34 | disposition home or self-care (01) ==
LOC: RAD 11:36
PROVIDERS: PCP Registered Nurse; Visit Provider Registered Nurse
DX: J43.2 Centrilobular emphysema (principal); R91.8 Other nonspecific abnormal finding of lung field; J84.10 Pulmonary fibrosis, unspecified; R59.0 Localized enlarged lymph nodes; I25.10 Atherosclerotic heart disease of native coronary artery without angina pectoris; M47.899 Other spondylosis, site unspecified; Z98.890 Other specified postprocedural states
CPT/HCPCS: 71250

== ENCOUNTER → 2024-12-20 14:34 | Outpatient (BNVA) | payer MEDICARE, MEDICAID, SELFPAY | PROVIDERS: PCP Registered Nurse; Visit Provider Internal Medicine | DX: J96.11 Chronic respiratory failure with hypoxia (principal); Z99.81 Dependence on supplemental oxygen; G47.33 Obstructive sleep apnea (adult) (pediatric); J44.1 Chronic obstructive pulmonary disease with (acute) exacerbation; R91.8 Other nonspecific abnormal finding of lung field; Z71.6 Tobacco abuse counseling; F17.210 Nicotine dependence, cigarettes, uncomplicated; J44.9 Chronic obstructive pulmonary disease, unspecified | CPT/HCPCS: 36415; 85025; 99204; 99406; Q3014 ==

== ENCOUNTER 2024-12-23 13:29 | Outpatient (CLI) | payer OTHER, MEDICAID, SELFPAY ==
--- NOTE | 2024-12-23 14:00 | PETR_ITS ---
PROCEDURE INFORMATION: Exam: PET/CT Skull Base to Mid-thigh Exam date and time: 12/23/2024 2:46 PM Age: 59 years old Clinical indication: Abnormal findings; Lung nodule right lung LABS AND CLINICAL REPORTS: Glucose: 98 mg/dl Treatment strategy for malignancy (PET staging): Initial Staging (PI) TECHNIQUE: Imaging protocol: Following at least four-hour fasting and following the injection of radiopharmaceutical, low dose CT images were obtained. Then, PET images were obtained. Attenuation corrected images were constructed using the CT scan. Fused images of PET and CT were reviewed. The standardized uptake values (SUV) reported below are maximum values within a region of interest, expressed in gm/ml. Exam includes orbital meatal line to mid-thigh. SUV normalization method: BodyWeight Radiopharmaceutical: 11.05 mCi F-18 FDG (Fluorodeoxyglucose), IV. Time of imaging post radiopharmaceutical administration: 46 minutes Injection site: LEFT AC COMPARISON: 1. PT PET Scan 09/17/2019 10:[address] chest con [id number] 05/24/2024 12:05 PM FINDINGS: Brain: Visualized brain has normal physiologic uptake. Pharynx: No abnormal uptake. Larynx: No abnormal uptake. Lungs, pleura and trachea: Irregular masslike right lung opacity along the minor fissure measures approximately 3.1 x 2.1 cm on axial image 92 and shows SUV max 6.3. Non FDG avid bandlike opacities extend inferior along the right middle lobe as well as superiorly at the right upper lobe. Stable 6 mm posterior right upper lobe nodule on axial image 75 is below the size threshold for accurate FDG assessment. Left lower lobe calcified granuloma. Heart: Normal physiologic uptake. Coronary arteries: Mild coronary artery calcification. Mediastinal space: No abnormal uptake. Liver: No abnormal uptake. Calcified granulomata. Gallbladder and biliary ducts: No abnormal uptake. Prior cholecystectomy. Pancreas: No abnormal uptake. Spleen: No abnormal uptake. Calcified granulomata. Adrenal glands: No abnormal uptake. Stable hypodense non FDG avid right adrenal nodule compatible with adenoma. Kidneys and ureters: Normal physiologic uptake. Stomach and bowel: Long segment FDG uptake along the colon without underlying CT abnormality is likely benign physiologic or inflammatory. Vasculature: No abnormal uptake. Mild systemic atherosclerotic calcification without aortic aneurysm. Lymph nodes: Asymmetric prominent FDG avid right hilar lymph nodes with index node measuring 2.1 cm in the short axis on axial image 92 and SUV max 4.6 on axial image 87. Calcified left hilar nodes with lower FDG uptake (SUV max 3.3) likely on the basis of old granulomatous disease. FDG avid right inguinal lymphadenopathy with index node measuring 1.4 cm in the short axis on axial image 223 with SUV max 13.0. Skeleton: Focal asymmetric FDG uptake at the imaged right femoral shaft cortex shows SUV max 3.5 on axial image [address] abnormality. Degenerative changes along the spine and acromioclavicular joints. C5-C6 ACDF. Soft tissues: No abnormal uptake in the visualized head, neck, chest, abdomen, pelvis, and extremities. METRICS: Mediastinal blood pool: SUV mean 2.3 Liver uptake: SUV mean 2.9 PET/PET skull to thigh SUBS [id number] IMPRESSION: 1. Irregular masslike right lung opacity along the minor fissure measuring approximately 3.1 cm suspicious for malignancy. 2. Intervally stable non FDG avid 6 mm right upper lobe nodule below size threshold for accurate FDG assessment. 3. Asymmetric prominent FDG avid right hilar lymphadenopathy may be metastatic, possibly reactive. 4. FDG avid right inguinal lymphadenopathy may be reactive or metastatic. Correlate with clinical exam, to include right lower extremity, to evaluate for potential source. Consider right femur MRI given focal asymmetric low-level FDG uptake at right femoral shaft (no discrete underlying CT abnormality).
== END 2024-12-23 13:30 | disposition home or self-care (01) ==
PROVIDERS: PCP Registered Nurse; Visit Provider Internal Medicine
DX: R91.8 Other nonspecific abnormal finding of lung field (principal); J98.4 Other disorders of lung; I25.84 Coronary atherosclerosis due to calcified coronary lesion; Z90.49 Acquired absence of other specified parts of digestive tract; K76.89 Other specified diseases of liver; D73.89 Other diseases of spleen; E27.9 Disorder of adrenal gland, unspecified; K63.89 Other specified diseases of intestine; I70.8 Atherosclerosis of other arteries; R59.0 Localized enlarged lymph nodes; M50.322 Other cervical disc degeneration at C5-C6 level; M85.851 Other specified disorders of bone density and structure, right thigh; M19.011 Primary osteoarthritis, right shoulder; M19.012 Primary osteoarthritis, left shoulder
CPT/HCPCS: 78815; A9552

== ENCOUNTER → 2024-12-29 09:40 | Outpatient (BNVA) | payer OTHER, MEDICAID, SELFPAY | PROVIDERS: PCP Registered Nurse; Visit Provider Internal Medicine | DX: R59.1 Generalized enlarged lymph nodes (principal); J44.1 Chronic obstructive pulmonary disease with (acute) exacerbation; R91.8 Other nonspecific abnormal finding of lung field; R93.6 Abnormal findings on diagnostic imaging of limbs; G47.33 Obstructive sleep apnea (adult) (pediatric); Z99.89 Dependence on other enabling machines and devices; F17.210 Nicotine dependence, cigarettes, uncomplicated | CPT/HCPCS: 99214; Q3014 ==

== ENCOUNTER 2025-01-04 05:32 | Day surgery (SDC) | payer OTHER, MEDICAID, SELFPAY ==
[2025-01-04] VITALS (11 sets, daily range): BP systolic 93–134; BP diastolic 61–82; PULSE 79–100; RESP 11–21; TEMP 36.1–36.4; O2SAT 88–94; BMI 44.4
[2025-01-04 06:30] LABS: Hematocrit 45.9 % (36-47); Hemoglobin 15.20 g/dL (11.27-16.99); Mean Corpuscular HGB Conc 33.1 g/dL (30-55); Mean Corpuscular Hemoglobin 31.0 pg (27-33); Mean Corpuscular Volume 93.5 fl (85-98); Nucleated Red Blood Cells % 0 %; Platelet Count 193 10^3/cmm (157-399); Red Blood Count 4.91 10^6/uL (3.85-5.65); White Blood Count 6.01 10^3/uL (3.29-11.43)
[2025-01-04 06:43] LABS: INR 0.91 (0.8-1.2); Prothrombin Time 12.90 SECONDS (12.1-14.9)
--- NOTE | 2025-01-04 06:47 | ANES.PREANE2 ---
Pre-Anesthetic Assessment Height/Weight: Height 5 ft 2 in Weight 243 lb Temp Pulse Resp BP Pulse Ox O2 Del Method O2 Flow Rate 97.5 F L 86 18 134/82 93 Nasal Cannula 3 01/04/25 05:56 01/04/25 05:56 01/04/25 05:56 01/04/25 05:56 01/04/25 05:56 01/04/25 05:56 01/04/25 05:56 Operation Date: 01/04/25 07:00 Proposed Procedures p Bronchoscopy with Lavage 69519 [id number] 20789 51244 88486 30049 35547 R91.8(Not Applicable) - Rachna Denny MD s Ebus(Not Applicable) - Rachna Denny MD Last intake: Intake Last Liquid Date 01/03/25 Last Liquid Time 23:00 Last Solid Date 01/03/25 Last Solid Time 15:30 Anesthetic Plan Other: No prior issues with anesthesia NPO since yesterday evening History of COPD on supplemental O2 FANG on CPAP Prior bronchoscopy 2020 without significant findings. Patient required steroids at least 3?4 times last year Still smoking GERD On semaglutide, last taken 7 days ago Plan for general anesthesia Medications/Allergies Home Medications ?Medication ?Instructions ?Recorded ?Confirmed ?Last Taken ?Type yxqqhalukyos-boypsghr-dadjhs 1 tab PO DAILY 10/04/19 01/04/25 01/03/25 History tablet (Multivitamin 50 Plus tablet) melatonin 3 mg capsule 3 mg PO DAILY 08/15/20 01/04/25 01/03/25 History pen needle, diabetic 32 gauge x See Rx Instructions .Route 11/28/20 01/04/25 Unknown Rx (BD Ultra-Fine Britany Pen .COMPLEX #100 ea Needle) albuterol sulfate 90 mcg/actuation 2 puff inhalation Q6H PRN 12/13/20 01/04/25 2 Weeks Ago Rx aerosol inhaler (Ventolin HFA) Shortness Of Breath #8.5 grams ~12/19/24 blood-glucose meter (OneTouch #1 ea 03/06/22 12/29/24 Unknown Rx Ultra2 Meter kit) cpap supplies #1 ea 09/04/22 12/29/24 Unknown Rx CPAP supplies #1 ea 11/20/22 12/29/24 Unknown Rx ipratropium 0.5 mg-albuterol 3 mg 3 ml inhalation QID PRN wheezing 04/22/24 01/04/25 3 Weeks Ago Rx (2.5 mg base)/3 mL nebulization #180 mL ~12/12/24 soln Continuous Oxygen 3L #1 ea 04/26/24 12/29/24 Unknown Rx lancets 33 gauge (OneTouch Delica #100 ea 05/26/24 12/29/24 Unknown Rx Plus Lancet) ropinirole 0.5 mg tablet 0.5 mg PO BID restless leg 11/15/24 01/04/25 01/03/25 Rx syndrome #60 tabs semaglutide 1 mg/dose (4 mg/3 mL) See Rx Instructions .Route 12/19/24 01/04/25 12/28/24 Rx subcutaneous pen injector (OzempWhatser) .COMPLEX #9 mL cyclobenzaprine 10 mg tablet 10 mg PO BID 12/20/24 01/04/25 01/03/25 History fluticasone fur. 100 mcg-umeclid 1 inh inhalation Q24H #28 ea 12/20/24 01/04/25 01/03/25 Rx 62.5 mcg-vilant 25 mcg inhalat.powder (Trelegy Ellipta) fluticasone propionate 50 1 spray intranasal BID PRN 12/20/24 01/04/25 3 Weeks Ago History mcg/actuation nasal allergies ~12/12/24 spray,suspension (Flonase Allergy Relief) gabapentin 600 mg tablet 600 mg PO BID 12/20/24 01/04/25 01/03/25 History hydrocodone 10 mg-acetaminophen 1 tab PO Q6H PRN Pain 12/20/24 01/04/25 01/03/25 History 325 mg tablet ibuprofen 800 mg tablet 800 mg PO Q8H PRN Pain 12/20/24 01/04/25 01/03/25 History varenicline tartrate 0.5 mg (11)-1 See Rx Instructions PO PER PKG DIR 12/20/24 01/04/25 01/03/25 Rx mg (42) tablets in a dose pack #53 ea (Chantix Starting Month Box) escitalopram oxalate 20 mg tablet 20 mg PO DAILY 01/02/25 01/04/25 01/03/25 History glipizide 5 mg tablet 5 mg PO BID 01/02/25 01/04/25 01/03/25 History metformin 1,000 mg tablet 1,000 mg PO BID 01/02/25 01/04/25 01/03/25 History Allergies Allergy/AdvReac Type Severity Reaction Status Date / Time No Known Allergies Allergy Verified 01/04/25 05:54 Current Medications Generic Name Dose Route Start Last Admin Trade Name Jeremiahq PRN Reason Stop Dose Admin Sodium Chloride 1,000 mls @ 30 mls/hr 01/04/25 06:00 01/04/25 06:10 Sodium Chloride 0.9% IV 01/05/25 05:59 30 mls/hr .Q24H MARIA GUADALUPE Administration PFSH Anesthesia Medical History (Updated 12/29/24 @ 10:06 by Rachna Denny MD) Inguinal lymphadenopathy Chronic midline back pain Encounter for long-term opiate analgesic use Opioid contract exists Low back pain of over 3 months duration Chronic neck pain Neuropathy DDD (degenerative disc disease) Depression GERD (gastroesophageal reflux disease) Diabetes History of colon polyps Surgical History S/P hemilaminotomy (06/15/14) Right L2-L3 hemilaminotomy/foraminotomy/discectomy Dr. Boykin History of section History of fusion of cervical spine (11/15/12) C5-C6 ACDFF Dr. Boykin History of cholecystectomy (2010) H/O colonoscopy 04/26/2019: Sigmoid colon polyp H/O esophagogastroduodenoscopy yrs [facility] Family History Mother Cancer Cervical Other Hypertension Denies family history of Anesthesia complication Bleeding disorder Social History Smoking and tobacco/nicotine status: current every day tobacco/nicotine user (current every day smoker (0.5 ppd) Smoking/Vaping Counsling Given: provider counseling and) cigarettes Packs smoked per day: 0.5 [ Other cigarette details: Hx of 1 PPD x 40 Years] Second hand smoke exposure: Yes Alcohol intake: never Substance/Drug Use: never Lives independently: Yes Household members: spouse Marital status: Current occupational status: disabled Do you think of yourself as: Straight/Heterosexual Current gender identity: Female Data Anesthesia 01/04/25 06:20 Short CBC 11/05/25 Range/Units 06:20 WBC 6.01 (3.29-11.43) 10^3/uL Hgb 15.20 (11.27-16.99) g/dL Hct 45.9 (36-47) % MCV 93.5 (85-98) fl Plt Count 193 (157-399) 10^3/cmm Neut % (Auto) 57.8 % Neut # (Auto) 3.48 (1.8-7.7) 10^3/uL Coags 01/04/25 06:20 PT 12.90 INR 0.91 Cardiac Studies: Echocardiogram Ultrasound 10/24/19 Sestamibi Stress Test (Cardiology) 09/23/19
--- NOTE | 2025-01-04 06:49 | ANES.PREANE2 ---
Pre-Anesthetic Assessment Height/Weight: Height 1.57 m Weight 110.223 kg Temp Pulse Resp BP Pulse Ox O2 Del Method O2 Flow Rate 97.5 F L 86 18 134/82 93 Nasal Cannula 3 01/04/25 05:56 01/04/25 05:56 01/04/25 05:56 01/04/25 05:56 01/04/25 05:56 01/04/25 05:56 01/04/25 05:56 Operation Date: 01/04/25 07:00 Proposed Procedures p Bronchoscopy with Lavage [id number] 30313 02270 08990 64221 44701 R91.8(Not Applicable) - Rachna Denny MD s Ebus(Not Applicable) - Rachna Denny MD Familial anesthetic complications: None Was Beta Kobe taken within 24 hours: N/A Was Clonidine taken within 24 hours: N/A Last intake: Intake Last Liquid Date 01/03/25 Last Liquid Time 23:00 Last Solid Date 01/03/25 Last Solid Time 15:30 Social Tobacco and No alcohol 0.5, hasn't smoked in 3 days pack(s) per day Exam alert, oriented x 3, clear to auscultation bilaterally (Diminished) and regular rate & rhythm Airway Submandibular: within normal limits Cervical ROM: within normal limits (Good ROM, posterior cervical fusion) Mallampati: Class III Dentition: false History/ROS No significant history except as noted and No significant complaints Pulmonary Chronic Obstructive Pulmonary Disease, Exertional Dyspnea and Sleep Apnea 3L O2 at home CV/HEM Arrythmia (RBBB) and Coronary Artery Disease None reported Hepatic None reported GI Gastroesophageal Reflux Disease and Peptic Ulcer Disease (History of ulcers) Metabolic Diabetes Mellitus and Morbid Obesity [facility] [place] Lower Back Pain and Osteoarthritis/DJD Neuropsych Anxiety, Depression and Neuropathy Anesthetic Plan ASA status: 4 Anesthesia: Anesthesia Evaluation and General Risk of > 500 ml blood loss (7ml/kg in children): No Medications/Allergies Home Medications ?Medication ?Instructions ?Recorded ?Confirmed ?Last Taken ?Type fpidtoqfasxj-hctpljey-hhvfhz 1 tab PO DAILY 10/04/19 01/04/25 01/03/25 History tablet (Multivitamin 50 Plus tablet) melatonin 3 mg capsule 3 mg PO DAILY 08/15/20 01/04/25 01/03/25 History pen needle, diabetic 32 gauge x See Rx Instructions .Route 11/28/20 01/04/25 Unknown Rx 32 (BD Ultra-Fine Britany Pen .COMPLEX #100 ea Needle) albuterol sulfate 90 mcg/actuation 2 puff inhalation Q6H PRN 12/13/20 01/04/25 2 Weeks Ago Rx aerosol inhaler (Ventolin HFA) Shortness Of Breath #8.5 grams ~12/19/24 blood-glucose meter ([facility] HealthTouch #1 ea 03/06/22 12/29/24 Unknown Rx Ultra2 Meter kit) cpap supplies #1 ea 09/04/22 12/29/24 Unknown Rx CPAP supplies #1 ea 11/20/22 12/29/24 Unknown Rx ipratropium 0.5 mg-albuterol 3 mg 3 ml inhalation QID PRN wheezing 04/22/24 01/04/25 3 Weeks Ago Rx (2.5 mg base)/3 mL nebulization #180 mL ~12/12/24 soln Continuous Oxygen 3L #1 ea 04/26/24 12/29/24 Unknown Rx lancets 33 gauge (OneTouch Delica #100 ea 05/26/24 12/29/24 Unknown Rx Plus Lancet) ropinirole 0.5 mg tablet 0.5 mg PO BID restless leg 11/15/24 01/04/25 01/03/25 Rx syndrome #60 tabs semaglutide 1 mg/dose (4 mg/3 mL) See Rx Instructions .Route 12/19/24 01/04/25 12/28/24 Rx subcutaneous pen injector (Ozempic) .COMPLEX #9 mL cyclobenzaprine 10 mg tablet 10 mg PO BID 12/20/24 01/04/25 01/03/25 History fluticasone fur. 100 mcg-umeclid 1 inh inhalation Q24H #28 ea 12/20/24 01/04/25 01/03/25 Rx 62.5 mcg-vilant 25 mcg inhalat.powder (Trelegy Ellipta) fluticasone propionate 50 1 spray intranasal BID PRN 12/20/24 01/04/25 3 Weeks Ago History mcg/actuation nasal allergies ~12/12/24 spray,suspension (Flonase Allergy Relief) gabapentin 600 mg tablet 600 mg PO BID 12/20/24 01/04/25 01/03/25 History hydrocodone 10 mg-acetaminophen 1 tab PO Q6H PRN Pain 12/20/24 01/04/25 01/03/25 History 325 mg tablet ibuprofen 800 mg tablet 800 mg PO Q8H PRN Pain 12/20/24 01/04/25 01/03/25 History varenicline tartrate 0.5 mg (11)-1 See Rx Instructions PO PER PKG DIR 12/20/24 01/04/25 01/03/25 Rx mg (42) tablets in a dose pack #53 ea (Chantix Starting Month Box) escitalopram oxalate 20 mg tablet 20 mg PO DAILY 01/02/25 01/04/25 01/03/25 History glipizide 5 mg tablet 5 mg PO BID 01/02/25 01/04/25 01/03/25 History metformin 1,000 mg tablet 1,000 mg PO BID 01/02/25 01/04/25 01/03/25 History Allergies Allergy/AdvReac Type Severity Reaction Status Date / Time No Known Allergies Allergy Verified 01/04/25 05:54 Current Medications Generic Name Dose Route Start Last Admin Trade Name Freq PRN Reason Stop Dose Admin Sodium Chloride 1,000 mls @ 30 mls/hr 01/04/25 06:00 01/04/25 06:10 Sodium Chloride 0.9% IV 01/05/25 05:59 30 mls/hr .Q24H MARIA GUADALUPE Administration PFSH Anesthesia Medical History (Updated 12/29/24 @ 10:06 by Rachna Denny MD) Inguinal lymphadenopathy Chronic midline back pain Encounter for long-term opiate analgesic use Opioid contract exists Low back pain of over 3 months duration Chronic neck pain Neuropathy DDD (degenerative disc disease) Depression GERD (gastroesophageal reflux disease) Diabetes History of colon polyps Surgical History S/P hemilaminotomy (06/15/14) Right L2-L3 hemilaminotomy/foraminotomy/discectomy Dr. Boykin History of section History of fusion of cervical spine (11/15/12) C5-C6 ACDFF Dr[address] Boykin History of cholecystectomy (2010) H/O colonoscopy 04/26/2019: Sigmoid colon polyp H/O esophagogastroduodenoscopy yrs [facility] Family History Mother Cancer Cervical Other Hypertension Denies family history of Anesthesia complication Bleeding disorder Social History Smoking and tobacco/nicotine status: current every day tobacco/nicotine user (current every day smoker (0.5 ppd) Smoking/Vaping Counsling Given: provider counseling and) cigarettes Packs smoked per day: 0.5 [ Other cigarette details: Hx of 1 PPD x 40 Years] Second hand smoke exposure: Yes Alcohol intake: never Substance/Drug Use: never Lives independently: Yes Household members: spouse Marital status: Current occupational status: disabled Do you think of yourself as: Straight/Heterosexual Current gender identity: Female Data Anesthesia 01/04/25 06:20 Short CBC 01/04/25 Range/Units 06:20 WBC 6.01 (3.29-11.43) 10^3/uL Hgb 15.20 (11.27-16.99) g/dL Hct 45.9 (36-47) % MCV 93.5 (85-98) fl Plt Count 193 (157-399) 10^3/cmm Neut % (Auto) 57.8 % Neut # (Auto) 3.48 (1.8-7.7) 10^3/uL Coags 01/04/25 06:20 PT 12.90 INR 0.91 Cardiac Studies: Echocardiogram Ultrasound 10/24/19 Sestamibi Stress Test (Cardiology) 09/23/19
--- NOTE | 2025-01-04 06:56 | PM.HP ---
Providers/Chief Complaint Primary Care Provider: JW Mandujano Chief Complaint: R91.8 History of Present Illness Philomena Rodriguez is a 59 year old female Surgery/Procedure H&P Update DATE OF PROCEDURE:01/04/2025 DATE H&P PERFORMED: 12/13/2024 CHANGES TO PREVIOUS DOCUMENTATION: Patient was seen and examined. No significant changes since I saw in the clinic. We will proceed with bronchoscopy as we planned. 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 - Rachna Denny MD s Andrew Denny MD Medications/Allergies Home Medications ?Medication ?Instructions ?Recorded ?Confirmed ?Last Taken ?Type skkoelfmgknh-lrasdmie-wcjbfw 1 tab PO DAILY 10/04/19 01/04/25 01/03/25 History tablet (Multivitamin 50 Plus tablet) melatonin 3 mg capsule 3 mg PO DAILY 08/15/20 01/04/25 01/03/25 History pen needle, diabetic 32 gauge x See Rx Instructions .Route 11/28/20 01/04/25 Unknown Rx (BD Ultra-Fine Britany Pen .COMPLEX #100 ea Needle) albuterol sulfate 90 mcg/actuation 2 puff inhalation Q6H PRN 12/13/20 01/04/25 2 Weeks Ago Rx aerosol inhaler (Ventolin HFA) Shortness Of Breath #8.5 grams ~12/19/24 blood-glucose meter (OneTouch #1 ea 03/06/22 12/29/24 Unknown Rx Ultra2 Meter kit) cpap supplies #1 ea 09/04/22 12/29/24 Unknown Rx CPAP supplies #1 ea 11/20/22 12/29/24 Unknown Rx ipratropium 0.5 mg-albuterol 3 mg 3 ml inhalation QID PRN wheezing 04/22/24 01/04/25 3 Weeks Ago Rx (2.5 mg base)/3 mL nebulization #180 mL ~12/12/24 soln Continuous Oxygen 3L #1 ea 04/26/24 12/29/24 Unknown Rx lancets 33 gauge (OneTouch Delica #100 ea 05/26/24 12/29/24 Unknown Rx Plus Lancet) ropinirole 0.5 mg tablet 0.5 mg PO BID restless leg 11/15/24 01/04/25 01/03/25 Rx syndrome #60 tabs semaglutide 1 mg/dose (4 mg/3 mL) See Rx Instructions .Route 12/19/24 01/04/25 12/28/24 Rx subcutaneous pen injector (Ideal Implant) .COMPLEX #9 mL cyclobenzaprine 10 mg tablet 10 mg PO BID 12/20/24 01/04/25 01/03/25 History fluticasone fur. 100 mcg-umeclid 1 inh inhalation Q24H #28 ea 12/20/24 01/04/25 01/03/25 Rx 62.5 mcg-vilant 25 mcg inhalat.powder (Trelegy Ellipta) fluticasone propionate 50 1 spray intranasal BID PRN 12/20/24 01/04/25 3 Weeks Ago History mcg/actuation nasal allergies ~12/12/24 spray,suspension (Flonase Allergy Relief) gabapentin 600 mg tablet 600 mg PO BID 12/20/24 01/04/25 01/03/25 History hydrocodone 10 mg-acetaminophen 1 tab PO Q6H PRN Pain 12/20/24 01/04/25 01/03/25 History 325 mg tablet ibuprofen 800 mg tablet 800 mg PO Q8H PRN Pain 12/20/24 01/04/25 01/03/25 History varenicline tartrate 0.5 mg (11)-1 See Rx Instructions PO PER PKG DIR 12/20/24 01/04/25 01/03/25 Rx mg (42) tablets in a dose pack #53 ea (Chantix Starting Month Box) escitalopram oxalate 20 mg tablet 20 mg PO DAILY 01/02/25 01/04/25 01/03/25 History glipizide 5 mg tablet 5 mg PO BID 01/02/25 01/04/25 01/03/25 History metformin 1,000 mg tablet 1,000 mg PO BID 01/02/25 01/04/25 01/03/25 History Allergies Allergy/AdvReac Type Severity Reaction Status Date / Time No Known Allergies Allergy Verified 01/04/25 05:54 PFSH Acute PFSH: Medical History (Updated 12/29/24 @ 10:06 by Rachna Denny MD) Inguinal lymphadenopathy Chronic midline back pain Encounter for long-term opiate analgesic use Opioid contract exists Low back pain of over 3 months duration Chronic neck pain Neuropathy DDD (degenerative disc disease) Depression GERD (gastroesophageal reflux disease) Diabetes History of colon polyps Surgical History S/P hemilaminotomy (06/15/14) Right L2-L3 hemilaminotomy/foraminotomy/discectomy Dr. Boykin History of section History of fusion of cervical spine (11/15/12) C5-C6 ACDFF Dr. Boykin History of cholecystectomy (2010) H/O colonoscopy 04/26/2019: Sigmoid colon polyp H/O esophagogastroduodenoscopy yrs [facility] Family History Mother Cancer Cervical Other Hypertension Denies family history of Anesthesia complication Bleeding disorder Social History Smoking and tobacco/nicotine status: current every day tobacco/nicotine user (current every day smoker (0.5 ppd) Smoking/Vaping Counsling Given: provider counseling and) cigarettes Packs smoked per day: 0.5 [ Other cigarette details: Hx of 1 PPD x 40 Years] Second hand smoke exposure: Yes Alcohol intake: never Substance/Drug Use: never Lives independently: Yes Household members: spouse Marital status: Current occupational status: disabled Do you think of yourself as: Straight/Heterosexual Current gender identity: Female Vitals/I&O/Wt Last Vital Signs Temp 97.5 F L 01/04/25 05:56 Pulse 86 01/04/25 05:56 Resp 18 01/04/25 05:56 BP 134/82 01/04/25 05:56 Pulse Ox 93 01/04/25 05:56 O2 Del Method Nasal Cannula 01/04/25 05:56 O2 Flow Rate 3 01/04/25 05:56 Weight last 48 hrs Weight 243 lb Data 01/04/25 06:20 A&P PDMP PDMP Reviewed: Not Reviewed Attestations Medical Necessity Statement*: EBus bronch Coding Level of Care Code Acute Code for Chg Fwd
[2025-01-04] MEDS: EPINEPHRINE XX (08:00)
[2025-01-04] MEDS: SODIUM CHLORIDE 0.9% XX (08:00)
--- NOTE | 2025-01-04 08:35 | P.OP_ITS ---
Procedure: Flexible bronchoscopy Attending: Rachna Denny MD Indication: Left middle lobe infiltrate and mediastinal lymphedenopathy Anesthesia: General anesthesia per anesthesia team Procedure: Pre-Anesthesia Assessment [place] Protocol: Pre-procedure Verification: Prior to the procedure, the patient's identity was confirmed using full name, date of , and medical record number. Identity verification included a review of all relevant medical records, history, physical examination, medications, allergies, and previous anesthesia tolerance. Risks, benefits, sedation options, and associated risks were reviewed with the patient, and informed consent was obtained after addressing all questions. Time-Out: Immediately before the procedure, a time-out was conducted to confirm patient identification, procedure details, consent, image labeling, and the need for prophylactic antibiotics. This was verified by the physician, nurse, anesthesiologist, and adjunct art history instructor. Outcome: The procedure was completed without difficulty, and the patient tolerated it well. Findings: A thorough airway exam was performed after passage of the bronchoscope. The trachea was anatomically normal. some areas of dynamic tracheobronchomalacia noted The right sided airway was anatomically normal without endobronchial lesions. Lots of thin secretions noted The left sided airway was anatomically normal without endobronchial lesions. Lots of thin secretions noted Endobronchial brushings performed down the Right middle lobe. (43212) A bronchoalveolar lavage was performed of the lobe containing Right middle lobe with 120mL of saline instilled and 40 mL of effluent returned. Additional rinse from the bronchoscope lumen was added to the sample after removal of the scope. (25419) The prior bronchoscope was removed from the airway and the EBUS scope was inserted. A complete curvilinear EBUS procedure was performed of the following lymph nodes: Level 11R station was identified. No nodes met size criteria for biopsy. Level 4R station was identified. No nodes met size criteria for biopsy. Level 7 station was identified with the EBUS scope at the medial LMSB/RMSB and 4 passes were made using a 21G Olympus TBNA needle. Level 4L station was identified. No nodes met size criteria for biopsy. Level 11R station was identified with the EBUS scope at the medial LMSB/RMSB and 6 passes were made using a 21G Olympus TBNA needle. RPMI samples taken. Kramer Bleeding Scale Grade 1: Suctioning <1 minute. Bleeding of no clinical consequence to patient or provider. Following completion of all diagnostic and therapeutic procedures, hemostasis was verified. The scope was removed and procedure concluded. In summary, the following procedures were performed: 11935 BAL, (Bronchoalveolar Lavage), 00452 [place] (Endobronchial Brushing(s)), 29880 cEBUS 1-2 lesions, (Central curvelinear EBUS 1-2 lesions), Rachna Denny MD Pulmonary and Critical Care
[2025-01-04 09:44] LABS: Cyto Order Verification Order Verified
--- NOTE | 2025-01-04 10:00 | ANE.PACU2 ---
Inpatient post-anesthesia follow up: Airway intact: Yes Vital signs: Temperature 97.4 F Pulse Rate 79 Respiratory Rate 16 Blood Pressure 110/67 Pulse Oximetry 93 Oxygen Delivery Me thod Nasal Cannula Oxygen Flow Rate 3 Fraction of Inspir ed Oxygen Hydration adequate: Yes Nausea and vomiting: No Pain level: 1 Mental status: Baseline
[2025-01-04 13:51] LABS: Total Cells Counted Bronch 200
[2025-01-04 13:52] LABS: Apprearance, Bronch Wash Cloudy (CLEAR); Color, Bronc Wash Colorless; Eosinophils % Bronch 5.00 % (0.13-0.25); Lymphocytes % Bronch 49.00 % (10.71-12.91); Macrophages % Bronch 57.00 % (83.6-86.8); Neutrophils % Bronch 89.00 % (0.9-2.3)
[2025-01-04 13:53] LABS: Bronch Source BAL
[2025-01-06 07:05] LABS: Lymphoma Profile (BBPL) See Report
== END 2025-01-04 10:05 | disposition home or self-care (01) ==
PROVIDERS: PCP Registered Nurse; Visit Provider Internal Medicine
PROC: (CPT 31624; principal; 2025-01-04 07:00)
PROC: BB4BZZZ Ultrasonography of Pleura (ICD-10-PCS; 2025-01-04 07:00)
DX: R91.8 Other nonspecific abnormal finding of lung field (principal); R59.1 Generalized enlarged lymph nodes; C82.90 Follicular lymphoma, unspecified, unspecified site; Z79.891 Long term (current) use of opiate analgesic; G62.9 Polyneuropathy, unspecified; E11.9 Type 2 diabetes mellitus without complications; Z79.84 Long term (current) use of oral hypoglycemic drugs; K21.9 Gastro-esophageal reflux disease without esophagitis; F17.210 Nicotine dependence, cigarettes, uncomplicated; J44.9 Chronic obstructive pulmonary disease, unspecified; Z99.81 Dependence on supplemental oxygen; G47.30 Sleep apnea, unspecified; Z99.89 Dependence on other enabling machines and devices; I25.10 Atherosclerotic heart disease of native coronary artery without angina pectoris; I49.9 Cardiac arrhythmia, unspecified; K27.9 Peptic ulcer, site unspecified, unspecified as acute or chronic, without hemorrhage or perforation; E66.01 Morbid (severe) obesity due to excess calories; Z68.41 Body mass index [BMI] 40.0-44.9, adult; F41.8 Other specified anxiety disorders
CPT/HCPCS: 31623; 31624; 31652; 36416; 80503; 82962; 85025; 85610; 87070; 87077; 87102; 87205; 87206; 88112; 88184; 88185; 88305; 88342; 89050; A9270; J0169; J1100; J2371; J2405; J2704; J3010; J3490; J7030; J9999

== ENCOUNTER → 2025-02-07 09:52 | Outpatient (BNVA) | payer OTHER, MEDICAID, SELFPAY | PROVIDERS: PCP Registered Nurse; Visit Provider Internal Medicine | DX: R59.0 Localized enlarged lymph nodes (principal); J44.1 Chronic obstructive pulmonary disease with (acute) exacerbation; G47.33 Obstructive sleep apnea (adult) (pediatric); Z99.89 Dependence on other enabling machines and devices; C85.90 Non-Hodgkin lymphoma, unspecified, unspecified site; Z87.01 Personal history of pneumonia (recurrent); Z87.891 Personal history of nicotine dependence; J44.9 Chronic obstructive pulmonary disease, unspecified | CPT/HCPCS: 99214; Q3014 ==

== ENCOUNTER 2025-02-07 11:08 | Outpatient (CLI) | payer OTHER, MEDICAID, SELFPAY ==
--- NOTE | 2025-02-07 11:18 | XR_ITS ---
WS: [id number] XR chest 2V* [id number] REASON FOR EXAM: pneumonia FINDINGS: No recent chest x-ray for comparison. CT scan of 05/24/2024 demonstrated airspace consolidation/atelectasis in the right middle lobe. The heart and the mediastinum are within normal limits. No acute pulmonary parenchymal or pleural abnormality in the left hemithorax. There is moderate elevation of the right hemidiaphragm. There is indistinctness of the right cardiac border which could indicate residual airspace consolidation in the right middle lobe. No other significant findings in the right hemithorax. XR/XR chest 2V* [id number] IMPRESSION: Possible persistent abnormality in the right middle lobe as above.
== END 2025-02-07 11:09 | disposition home or self-care (01) ==
LOC: RAD 11:10
PROVIDERS: PCP Registered Nurse; Visit Provider Internal Medicine
DX: J44.9 Chronic obstructive pulmonary disease, unspecified (principal); J98.6 Disorders of diaphragm; R91.8 Other nonspecific abnormal finding of lung field
CPT/HCPCS: 71046